=== PATIENT | male | born 1955 | race Caucasian/White ===

== ENCOUNTER 2016-08-16 10:03 | Inpatient (IN) | payer BC ==
[2016-08-15 14:16] LABS: WBC (NOT ORDERED) (RFLEX) 0 (0-5)
[2016-08-15 15:44] LABS: BASOPHILS 0.5 %; BASOPHILS ABSOLUTE 0.03 10/3/uL (0.0-0.16); EOSINOPHILS 3.6 %; EOSINOPHILS ABSOLUTE 0.21 10/3/uL (0.0-0.53); HEMATOCRIT 41.7 % (40.0-51.0); HEMOGLOBIN 14.7 g/dL (13.6-17.8); IMMATURE GRANULOCYTES 0.3 %; IMMATURE GRANULOCYTES ABSOLUTE 0.02 10/3/uL (0.0-0.11); LYMPHOCYTES 26.5 %; LYMPHOCYTES ABSOLUTE 1.54 10/3/uL (0.67-4.30); MEAN CORPUS HGB CONC 35.3 g/dL (32.0-36.0); MEAN CORPUSCULAR HEMOGLOB 31.1 pg (26.0-34.0); MEAN CORPUSCULAR VOLUME 88.2 fL (80-100); MEAN PLATELET VOLUME 9.4 fL (9.2-13.0); MONOCYTES 5.7 %; MONOCYTES ABSOLUTE 0.33 10/3/uL (0.21-1.20); NEUTROPHILS 63.4 %; NEUTROPHILS ABSOLUTE 3.68 10/3/uL (2.02-8.40); PLATELET COUNT 218 10/3/uL (150-400); RBC DISTRIBUTION WIDTH 13.2 % (12.0-16.0); RED CELL COUNT 4.73 10/6/uL (4.7-6.1)
[2016-08-15 15:45] LABS: MANUAL DIFF NO %; WHITE BLOOD CELLS 5.8 10/3/uL (4.5-10.5)
[2016-08-15 15:47] LABS: PROTIME (NOT ORD) 13.5 SEC (12.0-14.5)
[2016-08-15 15:59] LABS: A/G RATIO 1.1 (0.7-1.9); ALBUMIN 3.8 G/DL (3.5-5.0); ALKALINE PHOSPHATASE 50 U/L (45-117); BUN (BLOOD UREA NITROGEN) 20 MG/DL (6-23); CALCIUM, SERUM 8.8 MG/DL (8.5-10.4); CHLORIDE, SERUM 107 MMOL/L (96-112); CO2 (CARBON DIOXIDE) 28 MMOL/L (24-34); CREATININE 1.69 MG/DL (0.70-1.30); GFR AFRICAN AMERICAN 49 ML/MIN (>=60); GFR NON AFRICAN AMERICAN 43 ML/MIN (>=60); GLUCOSE, SERUM 129 MG/DL (60-99); SGOT(AST) 22 U/L (5-40); SGPT(ALT) 42 U/L (5-65); SODIUM, SERUM 143 MMOL/L (135-148); TOTAL BILIRUBIN 0.7 MG/DL (0-1.2); TOTAL PROTEIN 7.3 G/DL (6.0-8.5)
[2016-08-15 16:00] LABS: GLOBULIN 3.5 G/DL (2.5-4.1)
[2016-08-15 16:20] LABS: ASCORBIC ACID (UR NOT ORDER) NEG (NEG); BILIRUBIN, URINE NEGATIVE (NEG); KETONE, URINE NEGATIVE (NEG); LEUKOCYTE ESTERASE(NOT OR NEG (NEG)
--- NOTE | ~2016-08-16 | OP ---
Record Of Operation [facility] [address] [place]. [address] NAME: EBONY,HOMER JUAN MIKE : 53 STATUS : ADM IN PAT#: [id number] AGE: 61 ADM/REG DATE : 08/16/16 MR#: [id number] REPORT SERV DATE: 08/16/16 DICTATED BY: RESHMA BIRMINGHAM JR. DATE: 08/16/16 REPORT STATUS : Draft TRANSCRIBED BY: MODEan DATE: 08/16/16 DATE OF PROCEDURE: 08/16/2016 PREOPERATIVE DIAGNOSES: Metastatic renal cell, status post previous left nephrectomy, left lower lobectomy, left upper lobe wedge excision, chronic kidney disease stage III, and hypertension. POSTOPERATIVE DIAGNOSES: Metastatic renal cell, status post previous left nephrectomy, left lower lobectomy, left upper lobe wedge excision, chronic kidney disease stage III, and hypertension. NAME OF OPERATION: Bronchoscopy, right thoracoscopy with right lower lobe basilar segmentectomy, and intercostal nerve block. SURGEON: Reshma Birmingham Jr., M.D. RESIDENT SURGEON: Dr. Kwasi Flowers. SAW CLEANER: Ac Rosales. ANESTHESIA: General endotracheal. FINDINGS: The patient was noted to have no endobronchial lesions to contraindication resection. On exploration of the left chest, there are multiple scattered lesions within the basilar segment of the left lower lobe. There were at least 4 different lesions that we could identify with 1 being the most dominant lesion. It was felt that we needed to do a basilar segmentectomy given the multiple lesions. We could not identify any other nodules elsewhere. The margins were grossly negative. Final pathology is pending. DETAILS OF OPERATION: After adequate general anesthesia, the patient was intubated. A bronchoscopy was performed noting no endobronchial lesions to contraindication resection. A left-sided double-lumen endotracheal tube was then placed. The patient was then positioned in the left lateral decubitus position. The right chest was prepped and draped in a routine sterile fashion. A small incision was made overlying the lower intercostal space. A separate anterior trocar incision was also made. Through these two incision sites, the chest was explored. It was felt that the basilar segment needed to be removed as opposed to a wedge excision. The inferior pulmonary ligament was then dissected out. The hilar structures were dissected out. The basilar segment was identified and transected using multiple firings of a ANAMARIA stapler with tissue reinforcements. This superior segment of the right lower lobe was left intact. Mediastinal nodes were not dissected given this was metastatic disease as opposed to a primary lung lesion. There were no nodes of concern on CT scan. An intercostal nerve block was then performed. A 20-[place] chest tube was placed. Two trocar sites were closed with running Vicryl sutures. The skin was closed with running monofilament suture. A Dermabond dressing was applied and then the procedure was terminated at this point. The patient tolerated the procedure well and taken back to the recovery room in stable condition. Record Of Operation [facility] [address] [facility] [place]. [address] NAME: EBONYBHAVNA Mireles JUAN : 53 STATUS : ADM IN [facility]#: [id number] AGE: 61 ADM/REG DATE : 08/16/16 MR#: [id number] REPORT SERV DATE: 08/16/16 DICTATED BY: RESHMA BIRMINGHAM JR. DATE: 08/16/16 REPORT STATUS : Draft TRANSCRIBED BY: TRINIDAD DATE: 08/16/16 /TRINIDAD Reshma Birmingham Jr., M.D. / [id number] CC: Crissy Smith Jr., M.D. Darrell Johnson, M.D.
[~2016-08-16 10:03] MED LIST: FISH-EPA1000 MG PO; MULTIPLE VIT PO; PCET PO; PREV30 PO; PRIN2.5 PO; VITAMIN D1000 UNI1 PO; VITAMIN D31000 UNIT PO; ZOCOR20 PO
[2016-08-17 07:18] LABS: BASOPHILS 0 %; EOSINOPHILS 0 %; HEMOGLOBIN 12.5 g/dL (13.6-17.8); IMMATURE GRANULOCYTES 0.3 %; IMMATURE GRANULOCYTES ABSOLUTE 0.03 10/3/uL (0.0-0.11); LYMPHOCYTES 4.3 %; LYMPHOCYTES ABSOLUTE 0.51 10/3/uL (0.67-4.30); MEAN CORPUSCULAR HEMOGLOB 30.1 pg (26.0-34.0); MEAN CORPUSCULAR VOLUME 88.7 fL (80-100); MEAN PLATELET VOLUME 9.3 fL (9.2-13.0); MONOCYTES 4.7 %; MONOCYTES ABSOLUTE 0.55 10/3/uL (0.21-1.20); NEUTROPHILS 90.7 %; NEUTROPHILS ABSOLUTE 10.66 10/3/uL (2.02-8.40); PLATELET COUNT 180 10/3/uL (150-400); RBC DISTRIBUTION WIDTH 13.4 % (12.0-16.0); RED CELL COUNT 4.15 10/6/uL (4.7-6.1)
[2016-08-17 07:26] LABS: HEMATOCRIT 36.8 % (40.0-51.0); MANUAL DIFF NO %; WHITE BLOOD CELLS 11.8 10/3/uL (4.5-10.5)
[2016-08-17 07:34] LABS: CALCIUM, SERUM 8.2 MG/DL (8.5-10.4); CHLORIDE, SERUM 103 MMOL/L (96-112); GFR AFRICAN AMERICAN 43 ML/MIN (>=60); GFR NON AFRICAN AMERICAN 37 ML/MIN (>=60); POTASSIUM, SERUM 4.3 MMOL/L (3.5-5.3); SODIUM, SERUM 138 MMOL/L (135-148)
[2016-08-17 07:35] LABS: BUN (BLOOD UREA NITROGEN) 24 MG/DL (6-23); CO2 (CARBON DIOXIDE) 23 MMOL/L (24-34); GLUCOSE, SERUM 183 MG/DL (60-99)
[2016-08-17] MEDS ORDERED: PCET PO (08:59)
[2016-08-17] MEDS ORDERED: FLOMAX4 PO (08:59)
== END 2016-08-17 13:55 | disposition home or self-care (01) | DRG 165 ==
LOC: SDC/OF 10:03 → PACU 16:13 → 5NO 17:27
PROVIDERS: Thoracic Surgery (Cardiothoracic Vascular Surgery)
PROC: 3E0T3CZ (ICD-10-PCS; 2016-08-16)
PROC: 0BJ08ZZ Inspection of Tracheobronchial Tree, Via Natural or Artificial Opening Endoscopic (ICD-10-PCS; 2016-08-16)
PROC: 0BBF4ZZ Excision of Right Lower Lung Lobe, Percutaneous Endoscopic Approach (ICD-10-PCS; principal; 2016-08-16 12:30)
DX: C78.02 Secondary malignant neoplasm of left lung (principal); N18.3 Chronic kidney disease, stage 3 (moderate); I12.9 Hypertensive chronic kidney disease with stage 1 through stage 4 chronic kidney disease, or unspecified chronic kidney disease; Z85.528 Personal history of other malignant neoplasm of kidney; Z98.890 Other specified postprocedural states; Z90.5 Acquired absence of kidney
CPT/HCPCS: 36415; 71020; 80048; 80053; 81001; 82962; 83036; 85025; 85610; 86850; 86900; 86901; 87641; 88309; 93005; 94010; 94640; 94729; A9270-GY; J0690; J2250; J2405; J2710; J2795; J3010; J3370